=== PATIENT | male | born 1960 | race Caucasian/White ===

== ENCOUNTER → 2023-07-22 | Outpatient (CLI) | payer BC | END | disposition home or self-care (01) | LOC: RESCLI 11:26 | PROVIDERS: ATTEND Student in an Organized Health Care Education/Training Program | DX: E11.9 Type 2 diabetes mellitus without complications (principal); I10 Essential (primary) hypertension; J45.909 Unspecified asthma, uncomplicated; G47.33 Obstructive sleep apnea (adult) (pediatric); E78.5 Hyperlipidemia, unspecified; E78.2 Mixed hyperlipidemia; F10.90 Alcohol use, unspecified, uncomplicated; N52.9 Male erectile dysfunction, unspecified; Z79.899 Other long term (current) drug therapy; Z98.890 Other specified postprocedural states; Z83.3 Family history of diabetes mellitus; Z88.0 Allergy status to penicillin ==